=== PATIENT | male | born 1940 | race Caucasian/White ===

== ENCOUNTER 2019-03-27 00:16 | Emergency (ER) | payer MEDICARE, OTHER ==
--- NOTE | 2019-03-27 01:28 | EDM.PDOC ---
ED HPI GENERAL MEDICAL PROBLEM - General Chief Complaint: Laceration Stated Complaint: DOG SCRATCHES FROM CLAWS Time Seen by Provider: 03/27/19 00:20 Source of Information: Reports: Patient - History of Present Illness INITIAL COMMENTS - FREE TEXT/NARRATIVE: dictated - Related Data Allergies Allergy/AdvReac Type Severity Reaction Status Date / Time No Known Allergies Allergy Verified 03/27/19 02:01 Home Meds: Home Meds Carvedilol 0.5 tab PO BID 05/09/15 [History] Clopidogrel Bisulfate [Clopidogrel] 75 mg PO DAILY 05/09/15 [History] Doxazosin Mesylate [Cardura] 2 mg PO BID 05/09/15 [History] Folic Acid 1 mg PO DAILY 05/09/15 [History] Gabapentin [Neurontin] 400 mg PO TID 05/09/15 [History] Lisinopril 0.5 tab PO DAILY 05/09/15 [History] Nortriptyline 75 mg PO DAILY 05/09/15 [History] Pioglitazone HCl [Actos] 30 mg PO DAILY 05/09/15 [History] Simvastatin [Zocor] 80 mg PO BEDTIME 05/09/15 [History] carBAMazepine [Carbamazepine] 200 mg PO TID 05/09/15 [History] glipiZIDE [Glucotrol] 0.5 tab PO DAILY 05/09/15 [History] ED ROS GENERAL - Review of Systems Review Of Systems: ROS reveals no pertinent complaints other than HPI. ED EXAM, SKIN/RASH Exam: See Below Text/Narrative:: dictated Exam Limited By: No Limitations General Appearance: Alert, WD/WN, No Apparent Distress Departure - Departure Time of Disposition: 12:06 Disposition: Home, Self-Care 01 Condition: Good Clinical Impression: Abrasion - Discharge Information *PRESCRIPTION DRUG MONITORING PROGRAM REVIEWED*: Not Applicable *COPY OF PRESCRIPTION DRUG MONITORING REPORT IN PATIENT ALIZE: Not Applicable Instructions: Abrasion Referrals: PCP,None [Primary Care Provider] - Forms: ED Department Discharge Additional Instructions: Keep dressing on for 24 hours then wound open to air. May wash with soap and water after dressing removed. Apply antibiotic ointment to site daily and as needed. Return to clinic or ER if signs of infection, increased redness, swelling, pain or drainage.
--- NOTE | 2019-03-28 10:50 | ER ---
REASON FOR EMERGENCY ROOM VISIT: Scratches on left forearm. HISTORY OF PRESENT ILLNESS: This 79-year-old gentleman with a history of diabetes, hypercholesterolemia, and hypertension, who has been on Plavix, sustained an inadvertent scratch on his left forearm by his dog approximately two days ago. Since that time, he has continued to have persistent oozing, although it has not been a great deal and he has noticed ecchymosis about this area. PAST MEDICAL HISTORY: Reviewed. REVIEW OF SYSTEMS: Negative apart from that listed in HPI. PHYSICAL EXAMINATION: GENERAL: He is alert, in no acute distress. VITAL SIGNS: He is afebrile. EXTREMITIES: Examination of his left forearm reveals that he has four superficial lacerations with one area of abrasion, that is approximately 2 mm to 3 mm wide and approximately 1 cm in length. These are all very superficial and did not go to the dermis. His skin is very thin and atrophied. There is no significant oozing noted. He has ecchymosis about the forearm and minimum amount of swelling presumably from the local trauma. It is not exclusively tender. There is no evidence of cellulites, no evidence of purulence. Distally, he has good radial pulses. Fingers are pink and warm. IMPRESSION: Superficial abrasion on left forearm. PLAN: The area was scrubbed with surgical soap and antibiotic ointment was applied topically over which an occlusive dressing was applied. He was instructed to leave this on for at least 24 hours and to remove it the day after tomorrow first thing in the morning. After which, at this time, he should wash it at least twice a day, apply antibiotic ointment that was given to him (Neosporin) with one or two wraps of Kerlix gauze. He is instructed to follow up with his regular provider sometime late next week. All questions were answered. He understands and agrees with this plan. JASE /[id number]
== END 2019-03-27 00:49 | disposition home or self-care (01) ==
LOC: LB.ED 00:16
DX: S50.812A Abrasion of left forearm, initial encounter (principal); W54.1XXA Struck by dog, initial encounter
CPT/HCPCS: 99282

== ENCOUNTER 2019-04-07 09:18 | Emergency (ER) | payer MEDICARE, OTHER ==
--- NOTE | 2019-04-07 13:03 | ER ---
REASON FOR EMERGENCY ROOM VISIT: Rash. HISTORY: This 79-year-old man comes in with a 1-week history of a gradually evolving itchy rash on his hands and lower forearms. Approximately a week ago after pulling a bunch of large weeds out of his garden, he began to experience some itching in his hands and forearms, and he thought it was some kind of poison ariel that he had gotten into. The itching is smaller, then persisted throughout the week, and did not resolve. In fact, it got worse over the weekend to the point where he developed small blisters over these areas. He tried applying calamine lotion over it, and it offered him minimal relief. He did say that he developed an itch on his right upper buttock area that he scratched with one of his affected hands and a very small similar area broke out there. No other areas of rash were noted. He has not had any fever, chills, or other systemic complaints. He has not had any GI upsets or cough or respiratory complaints. PAST MEDICAL HISTORY: 1. Type 2 diabetes. 2. Hypertension. 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 4. Coronary artery disease with history of coronary artery bypass grafting. 5. Hypercholesterolemia. MEDICATIONS: 1. Atorvastatin. 2. Carvedilol. 3. Clopidogrel. 4. Carbamazepine. 5. Actos. 6. Glipizide. 7. Lisinopril. 8. Nortriptyline. 9. Vitamins. ALLERGIES: NONE TO MEDICATIONS. REVIEW OF SYSTEMS: Pertinent positives and negatives as listed in the HPI. PHYSICAL EXAMINATION: GENERAL: Reveals a pleasant man, in no acute distress. VITAL SIGNS: See EMR. CHEST: Clear to auscultation. CARDIAC: Regular rate without murmur. ABDOMEN: Soft and nontender. EXTREMITIES: His feet are pink and warm. He has no palpable foot pulses, but he does have popliteal pulses. SKIN: He has clusters of raised, mildly erythematous vesicles involving his fingers, his dorsum of both hands, his lower anterior forearm areas. These are all consistent with the typical plant allergy-type rash such as poison ariel. 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 PLAN: I have advised that he wash these areas with bactericidal soap and water. Once they dried, apply clobetasol cream 0.05% to affected areas b.i.d. I recommended Zyrtec orally to combat some of the itching. He can also use topical Benadryl on top of that. All questions were answered. He was given a prescription for clobetasol. If his rash worsens at any time or if it does not resolve within 3 or 4 days, he should have it rechecked. At that point, we might need to consider oral steroids, but with his diabetes, I would like to avoid that if at all possible. He understands and agrees. JASE /[id number]
[2019-04-07 14:39] VITALS: BP 133/61; PULSE 61
== END 2019-04-07 11:06 | disposition home or self-care (01) ==
LOC: LB.ED 09:18
DX: T78.49XA Other allergy, initial encounter (principal); E11.9 Type 2 diabetes mellitus without complications; E11.40 Type 2 diabetes mellitus with diabetic neuropathy, unspecified; I25.10 Atherosclerotic heart disease of native coronary artery without angina pectoris
CPT/HCPCS: 99282